=== PATIENT | female | born 1935 | race American Indian/Alaskan Native ===

== ENCOUNTER 2017-04-21 10:13 | Day surgery (SDC) | payer MEDICARE, OTHER ==
[2017-04-21] MEDS ORDERED: NACL 0.9% 1000 ML 1,000 ML ONE (11:09)
[2017-04-21] MEDS ORDERED: NACL 0.9% 1000 ML 1,000 ML IV SCH (12:00)
--- NOTE | 2017-04-21 14:12 | Anesthesia Consultation ---
Anesthesia Consult and Med Hx Date of service: 04/21/17 - Airway Anesthetic Teeth Evaluation: Good ROM Head & Neck: Adequate Mental/Hyoid Distance: Adequate Mallampati Class: Class II Intubation Access Assessment: Probably Good - Pulmonary Exam CTA: Yes - Cardiac Exam Cardiac Exam: RRR - Pre-Operative Health Status ASA Pre-Surgery Classification: ASA3 Proposed Anesthetic Plan: MAC - Cardiovascular System Hx Hypertension: Yes - Endocrine Hx Non-Insulin Dependent Diabetes: Yes - Additional Comments Anesthesia Medical History Comments: hypercholesterolemia
--- NOTE | 2017-04-21 14:12 | Anesthesia Day of Surgery ---
Anesthesia Day of Surgery - Day of Surgery Patient Examined: Yes Patient H&P Reviewed: Yes Patient is NPO: Yes
[2017-04-21] MEDS ORDERED: DIPRIVAN 10 MG/ML IV ONE ×2 (15:56)
[2017-04-21] MEDS ORDERED: WATER FOR IRRIG STERILE ONE (16:12)
--- NOTE | 2017-04-21 16:16 | Operative Report ---
Operative Report Operative Report: Date of procedure: 04/21/2017 Procedure: Colonoscopy. Attending physician: Jesse Garcia MD Hand Stripper: Jesse Garcia MD Indication: Patient is a 81-year-old female who presents for screening colonoscopy. A colonoscopy service to evaluate patient for colorectal cancer screening. Consent: Informed consent was obtained after advising the patient and family regarding nature of this procedure, its indications, potential benefits as well as possible complications including but not limited to bleeding perforation and adverse reaction to medication, infection as well as other cardiopulmonary complications. An informed written and verbal consent was then obtained after due opportunity was provided for questions and answers. Monitoring: Patient was monitored continuously with pulse oximetry and electrocardiographic recordings as well as blood pressure recordings. Vital signs remained stable throughout this procedure with no untoward events. Preoperative assessment: Patient was assessed immediately prior to this procedure for capacity to tolerate monitored anesthesia care and moderate sedation as well as general anesthesia. Patient's ASA classification is 2, Mallampati class is 2, Hyomental distance is 3. Instrument: Fujinon video colonoscope Medications: Propofol given intravenously in divided doses. For details please refer to anesthesia records. Description of procedure: Patient was placed in the left lateral decubitus position after achieving sedation, a digital rectal examination was performed following which the colonoscope was introduced into the anal verge and advanced to the ileocolonic anastomosis. The colonoscope was subsequently withdrawn with careful inspection of all mucosal surfaces. Patient tolerated this procedure well and was subsequently taken to the recovery room. The following findings were noted. Findings: The entirety of the colon to the ileocolonic anastomosis was normal with no mucosal lesions. On the retroflex view at the anal verge, patient had internal hemorrhoids. Impression: Internal hemorrhoids otherwise normal colonoscopy. Plan: High-fiber diet. Repeat colonoscopy in 5 years.
--- NOTE | 2017-04-21 16:17 | Discharge Summary ---
Short Stay Discharge Plan Activity: advance as tolerated Weight Bearing Status: Weight Bear as Tolerated Diet: regular Follow up with: NEDA ARMENTA MD [Primary Care Provider] - 7 Days
[2017-04-21 16:54] VITALS: BP 137/74
== END 2017-04-21 10:14 | disposition home or self-care (01) ==
LOC: GIO 10:13
PROVIDERS: ATTEND Internal Medicine Gastroenterology
DX: Z12.11 Encounter for screening for malignant neoplasm of colon (principal); K64.8 Other hemorrhoids; E11.9 Type 2 diabetes mellitus without complications; E78.00 Pure hypercholesterolemia, unspecified; I10 Essential (primary) hypertension; Z79.899 Other long term (current) drug therapy; Z98.0 Intestinal bypass and anastomosis status; Z98.41 Cataract extraction status, right eye; Z98.42 Cataract extraction status, left eye; Z88.5 Allergy status to narcotic agent
CPT/HCPCS: 82962; G0121; J2704; J7030